=== PATIENT | female | born 2000 | race Hispanic/Latino ===

== ENCOUNTER 2024-09-08 10:23 | Emergency (ER) | payer SELFPAY ==
[~2024-09-08] VITALS: Ht 170.2 cm; Wt 87.5 kg
[2024-09-08 10:39] VITALS: PULSE 76; RESP 18; TEMP 98.2; O2SAT 99
[2024-09-08 14:10] VITALS: BP 126/71; PULSE 90; RESP 18
== END 2024-09-08 14:07 | disposition home or self-care (01) ==
LOC: FSED 10:27
DX: O26.891 Other specified pregnancy related conditions, first trimester (principal); R10.31 Right lower quadrant pain
CPT/HCPCS: 76705; 76801; 76830; 80048; 80076; 85025; 99283